=== PATIENT | male | born 1945 | race Caucasian/White ===

== ENCOUNTER 2025-02-14 03:46 | Emergency (ER) | payer BC, MEDICARE ==
--- NOTE | 2025-02-14 05:26 | ED ---
General Adult HPI - General Source: patient, family, RN notes reviewed, old records reviewed Mode of arrival: wheelchair Limitations: no limitations <Miguel Hooper - Last Filed: 02/14/25 06:45> <Martin Hanson - Last Filed: 02/14/25 22:43> - General Chief complaint: Back Pain/Injury Stated complaint: back pain Time Seen by Provider: 02/14/25 04:42 - History of Present Illness Initial comments: 79-year-old male presenting with complaints of lower back pain. Reports he has been dealing with this since , does not recognize a singular inciting event. States the pain is in his lower back and radiates down his left buttock and down the back of his left leg to his foot. Reports he has had an extensive workup for this at an outside facility including x-rays which according to the patient showed no acute fracture or slipped disc. Family reports the patient had an MRI done recently and the results of that should be back in the next day or 2. States they were following with a pain management doctor who gave him a cortisone shot in his back which had no effect whatsoever. Reports the pain management doc had prescribed oxycodone which helped with his pain, but the family reports when they tried to have this pain medication refilled the the pain management doctor refused. States they are unsure why they were not able to get more pain medication. An appointment with Dr. Boykin (orthopedic surgeon) at the end of this week. Patient denies loss of bowel or bladder, denies decreased sensation extremities. (Miguel Hooper) - Related Data Home Medications Medication Instructions Recorded Confirmed Aspirin 81 mg PO DAILY 09/18/14 04/25/16 Omeprazole [PriLOSEC] 20 mg PO DAILY 09/18/14 04/25/16 Valsartan [Diovan] 80 mg PO DAILY 09/18/14 04/25/16 Atorvastatin [Lipitor] 80 mg PO DAILY 04/25/16 04/25/16 Gabapentin [Neurontin] 600 mg PO TID 04/25/16 04/25/16 Irbesartan [Avapro] 150 mg PO DAILY 04/25/16 04/25/16 Allen-3 Fatty Acids [Allen-3] 1,000 mg PO DAILY 04/25/16 04/25/16 Warfarin [Coumadin] 5 mg PO AC-SUPPER 04/25/16 04/25/16 Previous Rx's Medication Instructions Recorded HYDROcodone/APAP 10-325MG [Diana 1 tab PO Q6HR PRN 3 Days #12 tab 02/14/25 10-325] HYDROcodone/APAP 10-325MG [Diana 1 tab PO Q6HR PRN 3 Days #12 tab 02/14/25 10-325] Allergies Allergy/AdvReac Type Severity Reaction Status Date / Time No Known Allergies Allergy Verified 02/14/25 03:53 Review of Systems ROS Other: All systems not noted in ROS Statement are negative. <Miguel Hooper - Last Filed: 02/14/25 06:45> ROS Other: All systems not noted in ROS Statement are negative. <Martin Hanson - Last Filed: 02/14/25 22:43> ROS Statement: Those systems with pertinent positive or pertinent negative responses have been documented in the HPI. Past Medical History Past Medical History: Cancer, CVA/TIA, Deep Vein Thrombosis (DVT), GERD/Reflux, Hyperlipidemia, Hypertension, Prostate Disorder Additional Past Medical History / Comment(s): hx cluster headaches, resstless leg syndrome rt leg, hx ulcer and hiatal hernia, IBS, prostate cancer, hx anemia, arthritis,sciatica/bulging discs(had sx), tia,kidney stones History of Any Multi-Drug Resistant Organisms: None Reported Past Surgical History: Back Surgery, Hernia Repair, Prostate Surgery Additional Past Surgical History / Comment(s): nasal surgery, lap prostatectomy d/t cancer, sully inguinal hernia, rt cataract, , neck fusion 2003,back sx december 2015. Past Anesthesia/Blood Transfusion Reactions: No Reported Reaction Additional Past Anesthesia/Blood Transfusion Reaction / Comment(s): "long time to wake up from aa" Past Psychological History: No Psychological Hx Reported Smoking Status: Never smoker Past Alcohol Use History: Occasional Past Drug Use History: None Reported - Past Family History Mother Family Medical History: Rheumatoid Arthritis (RA) Father Family Medical History: Osteoarthritis (OA) Additional Family Medical History / Comment(s): heart problems not sure exactly what. <Miguel Hooper - Last Filed: 02/14/25 06:45> General Exam Limitations: no limitations <Miguel Hooper - Last Filed: 02/14/25 06:45> - General Exam Comments Initial Comments: GENERAL: In moderate distress at the time of examination. Pleasant and cooperative. HEENT: Head is atraumatic, normocephalic. Pupils are equal, round, and reactive to light. Sclerae anicteric. Conjunctivae are clear. Mucus membranes of the mouth are moist. Neck is supple. RESPIRATORY: Clear to auscultation. No wheezes, rales, or rhonchi. No use of accessory muscles. Patient maintaining oxygen saturation greater than 92%. No chest wall tenderness is noted on palpation or with deep breathing. CARDIOVASCULAR: Regular rate and rhythm. S1 and S2 noted. No systolic or diastolic murmur auscultated. No JVD noted. No S3 or S4 noted. GASTROINTESTINAL: No distention noted. Abdomen soft and round. Normal active bowel sounds auscultated x 4 quadrants. No pain or tenderness noted upon palpation. INTEGUMENTARY: No cyanosis. No jaundice. No rashes noted. No cellulitis noted. EXTREMITIES: 2+ peripheral pulses. No evidence of peripheral edema. No calf tenderness noted. PSYCHIATRIC: Awake, alert, and oriented X 3. Appropriate affect. Intact judgement and insight. (Miguel Hooper) Course Vital Signs 02/14/25 02/14/25 03:50 06:47 Temperature 97.5 F L 97.6 F Pulse Rate 78 72 Respiratory 18 16 Rate Blood Pressure 177/103 144/77 O2 Sat by Pulse 99 99 Oximetry Medical Decision Making <Miguel Hooper - Last Filed: 02/14/25 06:45> <Martin Hanson - Last Filed: 02/14/25 22:43> - Medical Decision Making Was pt. sent in by a medical professional or institution (, [facility], BUTT WELDER, urgent care, hospital, or residential...) When possible be specific @ -No Did you speak to anyone other than the patient for history (EMS, parent, family, police, friend...)? What history was obtained from this source @ -Yes, family Did you review nursing and triage notes (agree or disagree)? Why? @ -I reviewed and agree with nursing and triage notes Were old charts reviewed (outside hosp., previous admission, EMS record, old EKG, old radiological studies, urgent care reports/EKG's, residential records)? Report findings @ -No old charts were reviewed Differential Diagnosis? @ -Differential Back Pain: Strain, zoster, cauda equina syndrome, epidural abscess, vertebral osteomyelitis, discitis, fracture, subluxation, disc herniation, DJD, spinal stenosis, dissection, AAA, pancreatitis, peptic ulcer disease, pyelonephritis, kidney stone, this is not meant to be an all-inclusive list. EKG interpreted by me (3pts min.). @ -As above X-rays interpreted by me (1pt min.). @ -None done CT interpreted by me (1pt min.). @ -None done U/S interpreted by me (1pt. min.). @ -None done What testing was considered but not performed or refused? (CT, X-rays, U/S, labs)? Why? @ -None What meds were considered but not given or refused? Why? @ -None Did you discuss the management of the patient with other professionals (professionals i.e. , PA, BUTT WELDER, lab, RT, psych nurse, manager social responsibility, entertainment lawyer, teacher, major gifts officer, case preparer and liner)? Give summary @ -No Was smoking cessation discussed for >3mins.? @ -No Was critical care preformed (if so, how long)? @ -No Were there social determinants of health that impacted care today? How? (Homelessness, low income, unemployed, alcoholism, drug addiction, transportation, low edu. Level, literacy, decrease access to med. care, prison, rehab)? @ -No Was there de-escalation of care discussed even if they declined (Discuss DNR or withdrawal of care, Hospice)? DNR status @ -No What co-morbidities impacted this encounter? (DM, HTN, Smoking, COPD, CAD, Cancer, CVA, ARF, Chemo, Hep., AIDS, mental health diagnosis, sleep apnea, morbid obesity)? @ -None Was patient admitted / discharged? Hospital course, mention meds given and route, prescriptions, significant lab abnormalities, going to OR and other pertinent info. @ -79-year-old male presenting with complaints of chronic low back pain. As stated above the patient has had extensive evaluation of his back pain including x-rays and MRI and has also followed with a pain management physician. States he is out of pain medications and will not be seeing his orthopedic surgeon until Thursday. Patient was given pain medication here with some improvement in his lower back pain. We discharged with a short course of pain medication upon discharge. Patient is advised to follow-up with his PCP, automobile painter, and orthopedic surgeon. Undiagnosed new problem with uncertain prognosis? @ -No Drug Therapy requiring intensive monitoring for toxicity (Heparin, Nitro, Insulin, Cardizem)? @ -No Were any procedures done? @ -No Diagnosis/symptom? @ -Default Acute, or Chronic, or Acute on Chronic? @ -Chronic Uncomplicated (without systemic symptoms) or Complicated (systemic symptoms)? @ -Default Side effects of treatment? @ -No Exacerbation, Progression, or Severe Exacerbation? @ -No Poses a threat to life or bodily function? How? (Chest pain, USA, MT, pneumonia, PE, COPD, DKA, ARF, appy, cholecystitis, CVA, Diverticulitis, Homicidal, Suicidal, threat to staff... and all critical care pts) @ -No (Miguel Hooper) I personally saw the patient and performed the critical portion of the service. I discussed the patient care with the resident. I directed management, care planning and final disposition of the patient. This includes, but not limited to, review of all lab work, radiological studies, EKG's, consultations, vital signs, and nursing notes. EKG interpreted by me (3pts min.) @ [as above] X-Rays interpreted by me (1 pt min.) @ [none] CT interpreted by me ( 1pt min.) @ [none] U/S interpreted by me (1 pt min.) @ [none] Critical care time of [0] minutes excluding separately billable procedures was spent in conjunction with critical care activities provided by the Resident and Attending simultaneously. I was present during [no procedures] for all critical portions of the procedure and as immediately available to furnish service during the entire procedure. (Martin Hanson) Disposition Is patient prescribed a controlled substance at d/c from ED?: Yes <Miguel Hooper - Last Filed: 02/14/25 06:45> Is patient prescribed a controlled substance at d/c from ED?: Yes <Martin Hanson - Last Filed: 02/14/25 22:43> Clinical Impression: Sciatica Disposition: HOME SELF-CARE Condition: Stable Instructions (If sedation given, give patient instructions): Chronic Back Pain (DC) Prescriptions: HYDROcodone/APAP 10-325MG [Diana 10-325] 1 tab PO Q6HR PRN 3 Days #12 tab PRN Reason: Pain HYDROcodone/APAP 10-325MG [Diana 10-325] 1 tab PO Q6HR PRN 3 Days #12 tab PRN Reason: Pain Referrals: None,Stated [Primary Care Provider] - 1-2 days
[2025-02-14] MEDS: oxyCODONE-APAP 10-325MG 1 EACH TAB PO ONE (05:38)
[2025-02-14 06:57] VITALS: BP 144/77; PULSE 72; RESP 16; TEMP 97.6
== END 2025-02-14 06:47 | disposition home or self-care (01) ==
LOC: EC 03:46
DX: M54.30 Sciatica, unspecified side (principal)
CPT/HCPCS: 99283

== ENCOUNTER → 2025-02-27 | Outpatient (CLI) | payer MEDICARE ==
--- NOTE | 2025-02-27 12:16 | XR ---
EXAMINATION TYPE: XR chest 2V DATE OF EXAM: 02/27/2025 12:07 PM COMPARISON: None TECHNIQUE: XR chest 2V Frontal and lateral views of the chest. CLINICAL INDICATION:Male, 79 years old with history of Z01.818 PRE SURGICAL for lumbar surgery; FINDINGS: Lungs/Pleura: There is no evidence of pleural effusion, focal consolidation, or pneumothorax. Pulmonary vascularity: Unremarkable. Heart/mediastinum: Cardiomediastinal silhouette is unremarkable. Musculoskeletal: No acute osseous pathology. Multilevel degenerative disc disease of the visualized m id to lower thoracic spine. Cervical fusion hardware demonstrated. IMPRESSION: No acute cardiopulmonary disease/process. [facility], , 02/27/2025 12:14 PM
[2025-02-27 13:09] LABS: Partial Thromboplastin Time 22.5 sec (22.0-30.0); Prothrombin Time 11.1 sec (10.0-12.5)
[2025-02-27 15:34] LABS: Basophils # (A) 0.07 X 10*3/uL (0.00-0.10); Basophils % (A) 0.8 %; Eosinophils # (A) 0.22 X 10*3/uL (0.04-0.35); Eosinophils % (A) 2.5 %; HCT 42.1 % (39.6-50.0); HGB 14.1 g/dL (13.0-17.0); Lymphocytes # (A) 1.96 X 10*3/uL (0.90-5.00); Lymphocytes % (A) 22.4 %; MCH 31.6 pg (27.0-32.0); MCHC 33.5 g/dL (32.0-37.0); MCV 94.4 FL (80.0-97.0); Mean Platelet Volume 9.1 FL (9.5-12.2); Monocytes # (A) 0.93 X 10*3/uL (0.20-1.00); Monocytes % (A) 10.6 %; NRBC Per 100 WBC 0 X 10*3/uL (0.00-0.01); Neutrophils # (A) 5.52 X 10*3/uL (1.80-7.70); Platelet Count 164 X 10*3/uL (140-440); RBC 4.46 X 10*6/uL (4.40-5.60); RDW 13.3 % (11.5-14.5); WBC 8.76 X 10*3/uL (4.50-10.00)
[2025-02-27 16:00] LABS: Blood Urea Nitrogen 16.4 mg/dL (9.0-27.0); Carbon Dioxide 25.8 mmol/L (21.6-31.8); Chloride 99 mmol/L (96-109); Glucose 112 mg/dL (70-110); Potassium 4.4 mmol/L (3.5-5.5); Sodium 136 mmol/L (135-145)
[2025-02-27 16:07] LABS: Appearance,Urine Clear (Clear); Bilirubin,Urine Negative (Negative); Blood,Urine Negative (Negative); Color,Urine Yellow (Yellow); Ketones,Urine Negative (Negative); Nitrite,Urine Negative (Negative); PH, Urine 6.5; Specific Gravity,Urine 1.011 (1.001-1.030)
== END | disposition home or self-care (01) ==
LOC: LABPAT 11:49
PROVIDERS: ATTEND Orthopaedic Surgery Orthopaedic Surgery of the Spine
DX: Z01.818 Encounter for other preprocedural examination (principal); Z22.322 Carrier or suspected carrier of Methicillin resistant Staphylococcus aureus; I45.10 Unspecified right bundle-branch block; R00.0 Tachycardia, unspecified; R94.31 Abnormal electrocardiogram [ECG] [EKG]
CPT/HCPCS: 71046; 80048; 81003; 85025; 85610; 85730; 86850; 86900; 86901; 87070; 93005

== ENCOUNTER 2025-03-08 05:46 | Inpatient (IN) | payer MEDICARE ==
[~2025-03-08 05:46] MED LIST: ceFAZolin 1,000 MG in SODIUM CHLORIDE 0.9% IRRIGATIO 1,000 ML IRRIGATION PRN
[2025-03-08] MEDS ORDERED: HYDROmorphone 0.5 MG/0.5 ML SYRINGE IVP PRN ×2 (07:00→13:05)
[2025-03-08 07:08] LABS: Glucose,Whole Blood 105 mg/dL (70-110)
[2025-03-08] MEDS: LACTATED RINGERS 1,000 ML IV SCH (07:12)
[2025-03-08] MEDS: ONDANSETRON 4 MG/2 ML VIAL IVP STA (07:13)
[2025-03-08] MEDS: IV FLUID CONTINUATION 1,000 ML IV ONE ×2 (07:14)
[2025-03-08] MEDS ORDERED: HYDROmorphone (PF) 1 MG/ML ONE (07:27)
[2025-03-08] MEDS ORDERED: MIDAZOLAM 2 MG/2 ML VIAL ONE (07:27)
[2025-03-08] MEDS ORDERED: LIDOCAINE 1% INJ 10MG/ML (20 ML MDV) ONE (07:27)
[2025-03-08] MEDS ORDERED: ROCURONIUM 10 MG/ML (5 ML VIAL) IV ONE (07:27)
[2025-03-08] MEDS ORDERED: fentaNYL (PF) 50 MCG/ML 2 ML AMP ONE (07:27)
[2025-03-08] MEDS ORDERED: GLYCOPYRROLATE 0.2 MG/ML 2 ML VIAL ONE (07:27)
[2025-03-08] MEDS ORDERED: NEOSTIGMINE 1 MG/ML 10 ML VIAL ONE (07:27)
[2025-03-08] MEDS ORDERED: ONDANSETRON 4 MG/2 ML VIAL ONE (07:27)
[2025-03-08] MEDS ORDERED: TRANEXAMIC 1,000 MG/100ML-NACL PREMIX BAG ONE (07:27)
[2025-03-08] MEDS ORDERED: SUCCINYLCHOLINE CHLORIDE 200 MG/10 ML VIAL IV ONE (07:27)
[2025-03-08] MEDS ORDERED: PROPOFOL 10 MG/ML 20 ML VIAL IV ONE (07:27)
[2025-03-08] MEDS ORDERED: LABETALOL 5 MG/ML VIAL MDV ONE (07:27)
[2025-03-08] MEDS ORDERED: ACETAMINOPHEN IV (For NPO) 1,000 MG/100 ML VIAL ONE (07:27)
[2025-03-08] MEDS ORDERED: KETAMINE HCL IN 0.9 % NACL 50 MG/5 ML SYRINGE ONE (07:27)
[2025-03-08] MEDS ORDERED: PHENYLEPHRINE 10 MG/ML VIAL ONE (07:27)
[2025-03-08] MEDS: ceFAZolin 1,000 MG in SODIUM CHLORIDE 0.9% IRRIGATIO 1,000 ML IRRIGATION PRN (08:10)
[2025-03-08] MEDS: THROMBIN (BOVINE) 5,000 UNIT VIAL TOPICAL ONE (08:10)
[2025-03-08] MEDS: LIDOCAINE 1%-EPI 1:100,000 20 ML VIAL SQ ONE (08:10)
[2025-03-08] MEDS: ceFAZolin 1,000 MG in SODIUM CHLORIDE 0.9% 1,000 ML IRRIGATION ONE (09:53)
[2025-03-08] MEDS: SODIUM CHLORIDE 0.9% 1,000 ML IV ONE (10:00)
[2025-03-08] MEDS: LACTATED RINGERS 1,000 ML IV ONE ×2 (12:02→12:23)
--- NOTE | 2025-03-08 12:37 | XR ---
EXAMINATION TYPE: XR lumbar spine 2 or 3V, FL guidance operating room Intraoperative/procedural fluor oscopic services were provided. CLINICAL INDICATION:Male, 79 years old with history of M48.062 SPINAL STENOSIS; , [facility] FINDINGS: Postop images demonstrated in the document section on PACS. Postsurgical changes from L2 through L5 f usion with bilateral pedicular screws and rods and intervertebral disc hardware. No radiographic evid ence for complication. Total fluoroscopy time is 22 seconds. DAP: 4.4308 Gycm2 Please see the operative/procedural note for further details. [facility], , 03/08/2025 12:35 PM
[2025-03-08] MEDS ORDERED: BENZOCAINE/MENTHOL LOZENG 1 EACH LOZENGE MUCOUS MEM PRN (13:05)
[2025-03-08] MEDS ORDERED: ONDANSETRON 4 MG/2 ML VIAL IVP PRN (13:05)
--- NOTE | 2025-03-08 13:16 | P.OP ---
Date of Procedure: 03/08/25 Preoperative Diagnosis: Severe spinal stenosis L2-3 L3-4 L4-5, spondylolisthesis L4-5, history of prior laminectomy decompression L3-4 L4-5, degenerative disc disease facet arthrosis,, lower extremity radiculopathy with weakness, low back pain Postoperative Diagnosis: Same Anesthesia: GETA Pathology: none sent Condition: stable Disposition: PACU Description of Procedure: DESCRIPTION OF PROCEDURE(S): BRIEF OPERATIVE NOTE Preoperative Diagnosis: Severe spinal stenosis L2-3 L3-4 L4-5, spondylolisthesis L4-5, history of prior laminectomy decompression L3-4 L4-5, degenerative disc disease facet arthrosis,, lower extremity radiculopathy with weakness, low back pain Postoperative Diagnosis: Same Procedure: Revision laminectomy decompression L3-4 and L4-5 laminectomy and decompression L2-[address] navigation aided Minimally invasive Posterior lateral decompression and facet fusion L2-3 L3-4 L4-5 Minimally invasive Transforaminal lumbar interbody fusion for a 360 fusion L2-3 L3-4 L4-5 Discectomy for decompression L2-3 L3-4 L4-5 Placement of interbody graft L2-3 L3-4 L4-5 Use of computer navigation for fusion L2-L5 at L4 on the right Local autogenous bone grafting Aspiration of bone marrow from the vertebral body pedicle Use of bone graft extenders Surgeon: Dr. Addison Yard Specialist: Patrice MEAD who is present throughout the entire the case persistence during positioning, dissection, exposure, visualization, and all crucial elements of the case as well as closure. Anesthesia: General anesthesia per Estimated blood loss: Approximately 600 mL, with 200 get back to Cell Saver Complications: None apparent Components implanted: K2M minimally invasive [place] pedicle screw system withscrews measuring 6.5 mm in diameter to rods 3 [place] interbody cage with 10 mL of osteo amp bio4 bone graft substitute and 30 mL of the BX bone fibers to supplement the local autogenous bone graft and bone marrow aspirate Disposition: To recovery room in good stable condition. OPERATIVE INDICATIONS The patient has had severe issues at their lower extremity in her lower back over the past several years with significant worsening over the past several months. Many years ago he had undergone a laminectomy decompression L3-4 L4-5 for lower extremity radiculopathy with stenosis. He had done well with that but over the past few years has been developing worsening. He has developed significant worsening over the past year and particularly in the past several months where he is having great deal of difficulty with any sort of mobilization and ambulation due to the issues at his left lower extremity and across his lower back. He was found to have evidence of severe stenosis at L2-3 with recurrent foraminal stenosis L3-4 and L4-5 with a listhesis at L4-5 as well. These findings correlate well with his low back and lower extremity symptoms. He was having some weakness in his left lower extremity as well. Over the past few months the patient had pain at their back and their lower extremities. The patient is having severe radicular symptoms at their lower extremity with weakness. The patient is having significant pain in their back. They are unable to obtain any comfort. We did aggressive conservative treatment with medications therapy and interventional pain management however thery were not having any relief. The patient also showed evidence of a listhesis with some dynamic instability. He has been through multiple courses of interventional pain management and conservative care. He was not having any benefit despite this. The patient has been through conservative treatment. We discussed various treatment options including surgery, and the patient wishes to proceed with surgery We discussed the risk, patient's alternatives and benefits of surgery including but not limited to, risk of bleeding risk of infection, risk of need for further surgery, risk of decreased, loss of motion, muscle function, malunion nonunion, hardware failure, nerve damage, paralysis, heart attack, blindness and . They understood issues with the current pandemic and the possibility of exposure. OPERATIVE SUMMARY After discussing all the risks, patient alternatives and benefits at length, the patient elected to proceed with surgical intervention, signed informed consent, and presented for their procedure. The patient was seen and examined in the preoperative holding area and the surgical site was marked. The patient was given antibiotics and brought to the operating room. The patient was sedated and intubated by anesthesia in standard fashion. The patient was positioned on to the operating room table in a prone position on the appropriate frame which was well-padded and well molded. We were careful to pad any bony prominences and pressure points. We were careful to maintain the patient's cervical spine and good neutral alignment and position throughout. The patient was prepped and draped in a normal standard fashion. An appropriate timeout and keystone protocol performed. We were able to proceed with the surgery. The local wound area was infiltrated with local anesthetic. Over the right iliac crest I was able to make small stab incisions and establish a guidepin screw fixation to the iliac crest 2. I was able place the computer referencing device over the guidepins to establish an appropriate reference point for the Ziem CT navigation. We then were able to place patient in an appropriate drape and do a navigation spin for visualization and 3-D reconstruction of the lumbar spine. I was able utilize C-arm guidance and navigation to establish appropriate position over the pedicles bilaterally at the appropriate levels from L2-L5. With the appropriate levels confirmed was able to make small incisions over the appropriate pedicle sites bilaterally. Utilizing the computer navigation device I was able to establish bony landmarks at the right iliac crest for a bony reference point for the navigation device. I was able to establish a Jamshidi needle over the lateral aspect of the pedicle and advanced the trocar into the pedicle being careful not to breech superiorly inferiorly medially or laterally using computer navigation device. Position was confirmed regularly with AP and lateral images on C-arm and with the computer navigation device at the appropriate levels bilaterally from L2-L5. I was able to establish the trocar into the pedicle appropriately into the posterior aspect of the vertebral body bilaterally at the appropriate levels. This was done at each of the pedicle positions and each of the vertebrae. At the L4 vertebrae I was able to take approximately 15 mL of bone aspiration from the pedicle of L4 for use later in the case to supplement the allograft and autograft bone. I was able place the guidewire into the trocar and into the vertebral body appropriately under C-arm guidance. Dissection was taken down over the wire to the appropriate starting position for the screw placed. The appropriate length screw was chosen, threaded over the guidewire and screwed appropriately into the pedicle and vertebral body under C-arm guidance in excellent alignment and position with good bony purchase. This is done at each of the screw sites at the appropriate levels bilaterally at L2-L3-L4 and L5. With the screws intact I extended the incision to connect the screw hole sites on the most symptomatic side on the left. I dissected down to establish access over the pars and lamina to the base of the spinous process. I had to do revision decompression at L3-4 and L4-5 this was more tedious due to the prior surgery and the scar tissue at the areas in the changed anatomy. At each of the levels I was able to expose the facet joint. The capsule the facet was taken down and showed some facet arthrosis at the joint. I was able to use a combination of curettes and Kerrison rongeurs and a high-speed drill to take down the facet joint and do a facetectomy. I was able get excellent foraminal decompression and central decompression with undermining across midline to perform a laminectomy centrally and contralaterally. I was able get good central decompression. The ligamentum flavum was taken down to further decompress centrally and at bilateral neural foramen. I was able to expose the disc space and visualize the traversing nerve root. Note was made of some disc protrusion and disc herniation that was abutting the traversing nerve root at the level causing further compression of the nerve root. I was able to establish a annulotomy at the appropriate level protecting soft tissue and neural structures. Note was made of some disc desiccation at the disc. I performed a complete discectomy with accommodation of curettes and rasps and scrapers. I was able get good endplate preparation at the disc space. I sized for the appropriate size interbody spacer protecting the soft tissue and neural structures. The wound was copiously irrigated and suctioned dry. There is no evidence of any dural tear or leak. I was able to pack the disc space with local autogenous bone graft as well as a small amount of bone graft which was also placed into the interbody cage itself. Protecting the soft tissue structures and neural structures I was able place the interbody cage in good alignment and good position with good fit and fill at the interbody space. Position was confirmed with C-arm guidance. This was done at each level first at L4-5 and then at L3-4 and then L2-3 similarly Good hemostasis maintained. There is no evidence of any dural tear or leak. The wound was irrigated and suctioned dry. With the hardware intact, intraoperative C-arm imaging was again taken which showed good alignment and position of the hardware at the appropriate levels from L2-L5. We were then able to measure, contour and place the rods and appropriate hardware bilaterally. I was able to place capcrews, tighten them down, and torque them with the torque screwdriver appropriately. With this intact I was able to place the local autogenous bone graft with additional bone graft enhancer as necessary into the posterior lateral gutters over the decorticated transverse processes and facet joints on the contralateral side. The remainder of the bone graft was placed over the facet joint on the contralateral side after taking down the facet joint capsule. With the bone graft intact, a stable construct, and good decompression at the appropriate levels, we were able to proceed with closure. Good hemostasis was maintained. There is no evidence of dural tear or leak. The fascia was closed for a watertight closure. he subcuticular tissue was closed with absorbable suture. The wound was cleaned and dried and dressed with the appropriate dressing. The drapes were broken down. The patient was gently rolled back onto their hospital bed being careful to maintain their cervical spine and good neutral alignment and position. They were woken up by anesthesia, extubated, and brought to the recovery room in good stable condition. The patient will be admitted to the hospital for appropriate postoperative care, medical management and monitoring. We will continue to follow them closely about the postoperative course.
[2025-03-08 13:48] LABS: Glucose,Whole Blood 138 mg/dL (70-110)
[2025-03-08] MEDS: HYDROmorphone 1 MG/ML 1 ML SYRINGE IVP PRN (17:16)
[2025-03-08] MEDS: GABAPENTIN 300 MG CAP PO SCH (18:06)
[2025-03-08] MEDS: SODIUM CHLORIDE 0.9% 1,000 ML IV SCH (19:42)
[2025-03-08] MEDS: LATANOPROST 0.005% OPHTH DROPS 2.5 ML BTL BOTH EYES SCH (20:53)
[2025-03-08] MEDS: HYDROcodone/APAP 5-325MG 1 EACH TAB PO PRN (20:55)
--- NOTE | 2025-03-08 21:20 | P.CONS ---
History of Present Illness - Reason for Consult Consult date: 03/08/25 Medical management Requesting physician: Estefany Addison - Chief Complaint Back surgery - History of Present Illness Pleasant 79-year-old patient who follows with Dr. Purnima Parrish. Chronic medical conditions include DVT in the remote past, GERD, hypertension, hyperlipidemia, prostate cancer with surgical removal, restless leg syndrome, hiatal hernia, IBS, sciatica kidney stones. Patient been having increasing lower back pain. Pain does go down to the left hip and left leg. With numbness and tingling. Patient is undergone lumbar surgery. By Dr. Addison. Possibly has some pain sitting up in bed. No nausea vomiting Review of systems: GEN.: None EYES: None HEENT: None NECK: None RESPIRATORY: None CARDIOVASCULAR: None GASTROINTESTINAL: None GENITOURINARY: None MUSCULOSKELETAL: Back pain LYMPHATICS: None HEMATOLOGICAL: None PSYCHIATRY: None NEUROLOGICAL: As above Social history: Lives alone. Smoked for about 40 years stopped in 1989. Alcohol occasionally. Physical examination: VITAL SIGNS: 97.6, 86, 17, 118 x 82, 100% on 2 L GENERAL: BMI 29.5 sitting in bed awake not in distress. EYES: Pupils equal. Conjunctiva jerome l. HEENT: External appearance of nose and ears normal, oral cavity grossly normal. NECK: JVD not raised; masses not palpable. HEART: First and second heart sounds are normal; no edema. LUNGS: Respiratory rate normal; clear to auscultation. ABDOMEN: Soft, nontender, liver spleen not palpable, no masses palpable. PSYCH: Alert and oriented x3; mood and affect jerome l. MUSCULOSKELETAL:No Clubbing/cyanosis;muscles-grossly intact. Dressing over incision site NEUROLOGICAL: Cranial nerves grossly intact; no facial asymmetry, power and sensation grossly intact. LYMPHATICS: No lymph nodes palpable in the axilla and neck INVESTIGATIONS, reviewed in the clinical context: February 27, 2025: White count 8.7 hemoglobin 14.1 platelets 164 sodium 136 potassium 4.4 creatinine 1.0 Assessment plan: - Severe spinal stenosis L2-L3, L3-L4, L4-L5, spondylolisthesis L4-L5, history of prior laminectomy decompression L3-L4, L4-L5, DJD facet arthrosis, lower extremity radiculopathy with weakness especially on the left side low back pain. Patient underwent surgical intervention including laminectomy decompression discectomy interbody graft etc. Estimated blood loss approximately 600 cc with 200 get back to [facility] - Essential hypertension Diovan. Avapro - Restless leg syndrome Neurontin - Follow H&H. EBL was 600 with 200 and [facility] Labs in the morning - Hyperlipidemia Lipitor - GERD Omeprazole - Irritable bowel syndrome - Full code Care was discussed with patient. Questions answered. Activity per surgery. Thank Dr. Addison Past Medical History Past Medical History: Coronary Artery Disease (CAD), Cancer, CVA/TIA, Deep Vein Thrombosis (DVT), GERD/Reflux, Hyperlipidemia, Hypertension, Prostate Disorder Additional Past Medical History / Comment(s): hx cluster headaches, restless leg syndrome rt leg, hx ulcer and hiatal hernia, IBS, prostate cancer, hx anemia, arthritis,sciatica/bulging discs(had sx), tia,kidney stones. pt states he does not remember having a DVT or TIA History of Any Multi-Drug Resistant Organisms: None Reported Past Surgical History: Back Surgery, Hernia Repair, Prostate Surgery Additional Past Surgical History / Comment(s): nasal surgery, lap prostatectomy d/t cancer, sully inguinal hernia, rt cataract, , neck fusion 2003,back sx december 2015. hiatal hernia, rt rotator cuff repair Past Anesthesia/Blood Transfusion Reactions: No Reported Reaction Additional Past Anesthesia/Blood Transfusion Reaction / Comm: "long time to wake up from aa" Past Psychological History: No Psychological Hx Reported Smoking Status: Former smoker Past Alcohol Use History: Occasional Additional Past Alcohol Use History / Comment(s): started [id number] Past Drug Use History: None Reported - Past Family History Mother Family Medical History: Rheumatoid Arthritis (RA) Father Family Medical History: Osteoarthritis (OA) Additional Family Medical History / Comment(s): heart problems not sure exactly what. Medications and Allergies Home Medications Medication Instructions Recorded Confirmed Type Aspirin 81 mg PO DAILY 09/18/14 03/08/25 History Omeprazole [PriLOSEC] 20 mg PO DAILY 09/18/14 03/08/25 History Valsartan [Diovan] 80 mg PO DAILY 09/18/14 03/08/25 History Atorvastatin [Lipitor] 80 mg PO DAILY 04/25/16 03/08/25 History Gabapentin [Neurontin] 600 mg PO TID 04/25/16 03/08/25 History Irbesartan [Avapro] 150 mg PO DAILY 04/25/16 03/08/25 History [place]-3 Fatty Acids [[place]-3] 1,000 mg PO DAILY 04/25/16 03/08/25 History HYDROcodone/APAP 5-325MG [Corder 1 tab PO DIRECTED PRN 03/06/25 03/08/25 History 5-325] Latanoprost [Latanoprost 0.005%] 1 drop BOTH EYES HS 03/06/25 03/08/25 History Unk Vitamin C 1 tab PO DAILY 03/06/25 03/08/25 History Unk Vitamin D 1 tab PO DAILY 03/06/25 03/08/25 History Allergies Allergy/AdvReac Type Severity Reaction Status Date / Time No Known Allergies Allergy Verified 03/08/25 06:21 Physical Exam Vitals: Vital Signs Temp Pulse Pulse Pulse Resp BP BP 03/08/25 15:24 97.6 F 86 17 118/82 03/08/25 14:45 88 12 97/67 03/08/25 14:30 90 12 95/71 03/08/25 14:15 86 12 89/64 03/08/25 14:00 88 12 99/60 03/08/25 13:47 92 16 99/76 03/08/25 13:32 93 16 116/61 03/08/25 13:17 90 14 99/71 03/08/25 13:02 87 16 93/70 03/08/25 12:47 96.8 F L 90 13 104/73 03/08/25 06:30 97.0 F L 89 18 141/98 Pulse Ox 03/08/25 15:24 03/08/25 14:45 100 03/08/25 14:30 100 03/08/25 14:15 100 03/08/25 14:00 100 03/08/25 13:47 98 03/08/25 13:32 100 03/08/25 13:17 100 03/08/25 13:02 100 03/08/25 12:47 100 03/08/25 06:30 99 Intake and Output 03/08/25 03/08/25 03/08/25 06:59 14:59 22:59 Intake Total 3852 Output Total 1200 Balance 2652 Intake: IV 3852 Output: Urine 600 Estimated Blood Loss 600 Other: Weight 83 kg 83 kg Results Labs: Abnormal Lab Results - Last 24 Hours (Table) 03/08/25 Range/Units 13:46 POC Glucose (mg/dL) 138 H (70-110) mg/dL
[2025-03-09 08:16] LABS: Basophils # (A) 0.06 X 10*3/uL (0.00-0.10); Basophils % (A) 0.6 %; Eosinophils # (A) 0.03 X 10*3/uL (0.04-0.35); Eosinophils % (A) 0.3 %; HCT 41.4 % (39.6-50.0); HGB 13.5 g/dL (13.0-17.0); Immature Grans, Automated 1.90 %; Lymphocytes # (A) 1.05 X 10*3/uL (0.90-5.00); Lymphocytes % (A) 9.8 %; MCH 31.5 pg (27.0-32.0); MCHC 32.6 g/dL (32.0-37.0); MCV 96.5 FL (80.0-97.0); Monocytes # (A) 1.25 X 10*3/uL (0.20-1.00); Monocytes % (A) 11.7 %; NRBC Per 100 WBC 0 X 10*3/uL (0.00-0.01); Neutrophils # (A) 8.10 X 10*3/uL (1.80-7.70); Neutrophils % (A) 75.7 %; Platelet Count 154 X 10*3/uL (140-440); RBC 4.29 X 10*6/uL (4.40-5.60); RDW 14.2 % (11.5-14.5); WBC 10.69 X 10*3/uL (4.50-10.00)
[2025-03-09 08:30] LABS: Anion Gap 14.30 mmol/L (4.00-12.00); BUN/Creat Ratio 14.20 Ratio (12.00-20.00); Blood Urea Nitrogen 14.2 mg/dL (9.0-27.0); Calcium 8.2 mg/dL (8.7-10.3); Carbon Dioxide 21.7 mmol/L (21.6-31.8); Chloride 102 mmol/L (96-109); Glucose 139 mg/dL (70-110); Potassium 4.4 mmol/L (3.5-5.5); Sodium 138 mmol/L (135-145)
[2025-03-09] MEDS ORDERED: VALSARTAN 80 MG PO SCH (09:00)
[2025-03-09] MEDS: ASPIRIN 81 MG PO SCH (09:02)
[2025-03-09] MEDS: ATORVASTATIN 80 MG TAB PO SCH (09:02)
[2025-03-09] MEDS: SENNOSIDES-DOCUSATE SODIUM 1 EACH TAB PO SCH (09:05)
[2025-03-09] MEDS: LOSARTAN 50 MG TAB PO SCH (09:05)
[2025-03-09] MEDS: PANTOPRAZOLE 40 MG TABLET PO SCH (09:05)
--- NOTE | 2025-03-09 09:49 | P.PN ---
Progress Note - Text Progress Note Date: 03/09/25 Orthopedic Spine History of present illness: Patient is a pleasant 79-year-old male who is seen and examined at the bedside following posterior lateral decompression and fusion performed yesterday. Patient has had some difficulty postoperatively. He was significantly confused last night. His confusion has improved this morning. He is having pain and stiffness at his lumbar spine. He is not currently complaining of lower extremity weakness or radiculopathy. He has not yet been out of bed this morning. His pain is currently being controlled with medications. Patient would like to try to work with therapy over the next couple days to increase his mobility and ambulation. He is hoping to be discharged home when cleared. Patient is being seen by medicine for his other medical diagnoses including essential hypertension, hyperlipidemia, restless leg syndrome, and IBS. Patient also has a history of coronary artery disease, DVT, and prostate disorder. He does admit to some abdominal discomfort this morning. He is passing gas. His Johnson catheter was just discontinued this morning. He has not yet voided independently. Physical Exam Lumbar Fusion: Status post surgical day number 1 Patient is awake, alert, and oriented 3; patient is answering questions appropriately at the bedside. Vital signs stable Good chest excursion with deep inspiration and expiration Abdomen soft Dorsiflexion, plantarflexion, and extensor hallucis longus positive sustained bilaterally No signs or symptoms of DVT; no calf pain; pneumatic cuffs intact bilateral lower extremities Optifoam dressings are clean, dry, and intact over the lumbar spine and right iliac crest; no erythema, purulence, or signs of infection Neurovascularly intact bilaterally lower extremities Assessment: Status post L2-3, L3-4, and L4-5 minimally invasive posterior lateral decompression and fusion with transforaminal lumbar interbody fusion Low back pain L4-5 spondylolisthesis L2-3, L3-4, and L4-5 severe spinal stenosis L3-4 and L4-5 history of laminectomy Lumbar degenerative disc disease Lumbar facet arthrosis Lower extremity radiculopathy with weakness Essential hypertension Hyperlipidemia Restless leg syndrome IBS History coronary artery disease History of DVT History of prostate disorder Plan: 1. Ambulate as tolerated; work with Physical Therapy to increase mobilization 2. Continue pain control with IV and oral medications; will plan to begin weaning the patient off of IV narcotic medication in anticipation for discharge home in the next 1-2 days 3. Dressings to remain intact with Optifoam; patient may shower with dressings intact 4. Medical management can continue to manage patient for his other medical diagnoses 5. We will continue to follow the patient closely; patient will most likely remain in the hospital over the next 2 to 3 days depending on his progress postoperatively with plans to be discharged home once his symptoms improve and his pain is controlled with oral medications. 6. Patient can follow-up with Patrice Hampton PA-C or Dr. Sunday Addison at [facility] in 2-3 weeks following discharge
[2025-03-09] MEDS: CYCLOBENZAPRINE 10 MG TAB PO PRN (11:24)
--- NOTE | 2025-03-09 17:37 | P.PN ---
Progress Note - Text Progress Note Date: 03/09/25 - Chief Complaint Back surgery - History of Present Illness Pleasant 79-year-old patient who follows with Dr. Purnima Parrish. Chronic medical conditions include DVT in the remote past, GERD, hypertension, hyperlipidemia, prostate cancer with surgical removal, restless leg syndrome, hiatal hernia, IBS, sciatica kidney stones. Patient been having increasing lower back pain. Pain does go down to the left hip and left leg. With numbness and tingling. Patient is undergone lumbar surgery. By Dr. Addison. Possibly has some pain sitting up in bed. No nausea vomiting March 09: Sitting up in bed. Daughter at the bedside. Eating fair. Johnson was removed. Has not made urine when I saw the patient earlier today. Seen by physical therapy. Was a moderate assist 3 feet to the chair. With a rolling walker. Looking to go to rehab. Active Medications Hydrocodone Bitart/Acetaminophen (Hydrocodone/Apap 5-325mg 1 Each Tab) 1 each PO Q4HR PRN PRN Reason: Pain 1-3 Stop: 04/07/25 13:04 Last Admin: 03/09/25 09:02 Dose: 1 each Aspirin (Aspirin 81 Mg) 81 mg PO DAILY CIARA Stop: 04/08/25 08:59 Last Admin: 03/09/25 09:02 Dose: 81 mg Atorvastatin Calcium (Atorvastatin 80 Mg Tab) 80 mg PO DAILY CIARA Stop: 04/08/25 08:59 Last Admin: 03/09/25 09:02 Dose: 80 mg Benzocaine/Menthol (Benzocaine/Menthol Lozeng 1 Each Lozenge) 1 each MUCOUS MEM Q4HR PRN PRN Reason: Sore Throat Stop: 04/07/25 13:04 Cyclobenzaprine HCl (Cyclobenzaprine 10 Mg Tab) 10 mg PO TID PRN PRN Reason: Muscle Spasm Stop: 04/07/25 13:04 Last Admin: 03/09/25 11:24 Dose: 10 mg Gabapentin (Gabapentin 300 Mg Cap) 600 mg PO TID CIARA Stop: 04/07/25 15:59 Last Admin: 03/09/25 16:22 Dose: 600 mg Hydromorphone HCl (Hydromorphone 0.5 Mg/0.5 Ml Syringe) 0.5 mg IVP Q4HR PRN PRN Reason: Pain 4-6 Stop: 04/07/25 13:04 Hydromorphone HCl (Hydromorphone 1 Mg/Ml 1 Ml Syringe) 1 mg IVP Q4HR PRN PRN Reason: Pain 7-10 Stop: 04/07/25 13:04 Last Admin: 03/09/25 05:13 Dose: 1 mg Lactated Ringer's (Lactated Ringers) 1,000 mls @ 20 mls/hr IV .Q24H CIARA Stop: 04/07/25 06:12 Last Admin: 03/08/25 07:13 Dose: 20 mls/hr Sodium Chloride (Saline 0.9%) 1,000 mls @ 75 mls/hr IV .[id number] [facility] Stop: 04/07/25 13:14 Last Admin: 03/09/25 02:29 Dose: 75 mls/hr Latanoprost (Latanoprost 0.005% Ophth Drops 2.5 Ml Btl) 1 drops BOTH EYES HS [facility] Stop: 04/07/25 20:59 Last Admin: 03/08/25 20:53 Dose: 1 drops Losartan Potassium (Losartan 50 Mg Tab) 50 mg PO DAILY CIARA Stop: 04/08/25 08:59 Last Admin: 03/09/25 09:05 Dose: 50 mg Magnesium Hydroxide (Magnesium Hydroxide 2,400 Mg/30 Ml Cup) 2,400 mg PO DAILY PRN PRN Reason: Constipation Stop: 04/07/25 13:04 Ondansetron HCl (Ondansetron 4 Mg/2 Ml Vial) 4 mg IVP Q8HR PRN PRN Reason: Nausea And Vomiting Stop: 04/07/25 13:04 Pantoprazole Sodium (Pantoprazole 40 Mg Tablet) 40 mg PO DAILY CIARA Stop: 04/08/25 08:59 Last Admin: 03/09/25 09:05 Dose: 40 mg Senna/Docusate Sodium (Sennosides-Docusate Sodium 1 Each Tab) 1 each PO DAILY [facility]ARA Stop: 04/08/25 08:59 Last Admin: 03/09/25 09:05 Dose: 1 each Senna/Docusate Sodium (Sennosides-Docusate Sodium 1 Each Tab) 2 each PO DAILY PRN PRN Reason: Constipation Stop: 04/07/25 13:04 Social history: Lives alone. Smoked for about 40 years stopped in 1989. Alcohol occasionally. Physical examination: VITAL SIGNS: 99, 98, 16, 130 x 80, 95% room air GENERAL: BMI 29.5 reclining in bed EYES: Pupils equal. Conjunctiva jerome l. HEENT: External appearance of nose and ears normal, oral cavity grossly normal. NECK: JVD not raised; masses not palpable. HEART: First and second heart sounds are normal; no edema. LUNGS: Respiratory rate normal; clear to auscultation. ABDOMEN: Soft, nontender, liver spleen not palpable, no masses palpable. PSYCH: Alert and oriented x3; mood and affect jerome l. MUSCULOSKELETAL:No Clubbing/cyanosis;muscles-grossly intact. Dressing over incision site NEUROLOGICAL: Cranial nerves grossly intact; no facial asymmetry, power and sensation grossly intact. INVESTIGATIONS, reviewed in the clinical context: March 09: White count 10.6 hemoglobin 13.5 platelets 154 potassium 4.4 creatinine 1.0 February 27, 2025: White count 8.7 hemoglobin 14.1 platelets 164 sodium 136 potassium 4.4 creatinine 1.0 Assessment plan: - Severe spinal stenosis L2-L3, L3-L4, L4-L5, spondylolisthesis L4-L5, history of prior laminectomy decompression L3-L4, L4-L5, DJD facet arthrosis, lower extremity radiculopathy with weakness especially on the left side low back pain. Patient underwent surgical intervention including laminectomy decompression discectomy interbody graft etc. Estimated blood loss approximately 600 cc with 200 get back to [facility] Pain control - Essential hypertension Diovan. Avapro - Restless leg syndrome Neurontin - Acute gait dysfunction following surgery. PT OT on the case. - Follow H&H. EBL was 600 with 200 and [facility] in the morning - Hyperlipidemia Lipitor - GERD Omeprazole - Irritable bowel syndrome - Full code Discussed with patient daughter. Activity per PT OT. Thank Dr. Addison Past Medical History Past Medical History: Coronary Artery Disease (CAD), Cancer, CVA/TIA, Deep Vein Thrombosis (DVT), GERD/Reflux, Hyperlipidemia, Hypertension, Prostate Disorder Additional Past Medical History / Comment(s): hx cluster headaches, restless leg syndrome rt leg, hx ulcer and hiatal hernia, IBS, prostate cancer, hx anemia, arthritis,sciatica/bulging discs(had sx), tia,kidney stones. pt states he does not remember having a DVT or TIA History of Any Multi-Drug Resistant Organisms: None Reported Past Surgical History: Back Surgery, Hernia Repair, Prostate Surgery Additional Past Surgical History / Comment(s): nasal surgery, lap prostatectomy d/t cancer, sully inguinal hernia, rt cataract, , neck fusion 2003,back sx december 2015. hiatal hernia, rt rotator cuff repair Past Anesthesia/Blood Transfusion Reactions: No Reported Reaction Additional Past Anesthesia/Blood Transfusion Reaction / Comm: "long time to wake up from aa" Past Psychological History: No Psychological Hx Reported Smoking Status: Former smoker Past Alcohol Use History: Occasional Additional Past Alcohol Use History / Comment(s): started [id number] quit [id number] Past Drug Use History: None Reported
--- NOTE | 2025-03-10 09:06 | P.PN ---
Progress Note - Text Progress Note Date: 03/10/25 Orthopedic Spine History of present illness: Patient is a pleasant 79-year-old male who is seen and examined at the bedside following posterior lateral decompression and fusion performed Thursday. He has had improvement as compared to yesterday. His back pain is better controlled. It does continue to be present. His pain is currently being controlled with oral medications. He is currently sitting in a bedside chair. He has been able to transfer with physical therapy. He does state he is unable to mobilize independently. He is currently planning for discharge to [facility] once authorization has been obtained. Case management is currently working on this authorization. He is eating and voiding without difficulty. He is not currently complaining of lower extremity weakness or radiculopathy. Patient is being seen by medicine for his other medical diagnoses including essential hypertension, hyperlipidemia, restless leg syndrome, and IBS. Patient also has a history of coronary artery disease, DVT, and prostate disorder. Physical Exam Lumbar Fusion: Status post surgical day number 2 Patient is awake, alert, and oriented 3; patient is answering questions appropriately at the bedside. Vital signs stable Good chest excursion with deep inspiration and expiration Abdomen soft Dorsiflexion, plantarflexion, and extensor hallucis longus positive sustained bilaterally No signs or symptoms of DVT; no calf pain; pneumatic cuffs intact bilateral lower extremities Optifoam dressings are dry and intact over the lumbar spine and right iliac crest with 1 small spot of dried blood or over the inferior aspect of the left lower lumbar incision site no erythema, purulence, or signs of infection Neurovascularly intact bilaterally lower extremities Assessment: Status post L2-3, L3-4, and L4-5 minimally invasive posterior lateral decompression and fusion with transforaminal lumbar interbody fusion Low back pain L4-5 spondylolisthesis L2-3, L3-4, and L4-5 severe spinal stenosis L3-4 and L4-5 history of laminectomy Lumbar degenerative disc disease Lumbar facet arthrosis Lower extremity radiculopathy with weakness Essential hypertension Hyperlipidemia Restless leg syndrome IBS History coronary artery disease History of DVT History of prostate disorder Plan: 1. Ambulate as tolerated; work with Physical Therapy to increase mobilization 2. Continue pain control with IV and oral medications; will plan to begin weaning the patient off of IV narcotic medication in anticipation for discharge [facility] in the next 1-2 days An "Opiod Start Talking" Form has been signed and placed in the patient's chart. A prescription has been written for hydrocodone 5 mg / 325 mg, 1 tab, every 6 hours, as needed for acute pain, dispense #28. Prescription is written, signed, and placed in the patient's chart for discharge to rehabilitation facility. Prescriptions also added for baclofen 10 mg, 1 tab, 3 times daily, as needed for muscle spasm and Senokot-S, 1 tab, twice daily, as needed for constipation. 3. Dressings to remain intact with Optifoam; patient may shower with dressings intact 4. Medical management can continue to manage patient for his other medical diagnoses 5. We will continue to follow the patient closely; patient is currently planning for discharge for [facility] rehabilitation facility. This could happen as early as tomorrow, 03/11/2025 if approved by his insurance. If not, he will most likely remain in the hospital until this coming 03/13/2025 with plans to discharge to [facility] rehabilitation facility at that time. 6. Patient can follow-up with Patrice Hampton PA-C or Dr. Sunday Addison at [facility] in 2-3 weeks following discharge
[2025-03-10] MEDS: SENNOSIDES-DOCUSATE SODIUM 1 EACH TAB PO PRN (13:36)
--- NOTE | 2025-03-10 17:49 | P.PN ---
Progress Note - Text Progress Note Date: 03/10/25 - Chief Complaint Back surgery - History of Present Illness Pleasant 79-year-old patient who follows with Dr. Purnima Parrish. Chronic medical conditions include DVT in the remote past, GERD, hypertension, hyperlipidemia, prostate cancer with surgical removal, restless leg syndrome, hiatal hernia, IBS, sciatica kidney stones. Patient been having increasing lower back pain. Pain does go down to the left hip and left leg. With numbness and tingling. Patient is undergone lumbar surgery. By Dr. Addison. Possibly has some pain sitting up in bed. No nausea vomiting March 09: Sitting up in bed. Daughter at the bedside. Eating fair. Johnson was removed. Has not made urine when I saw the patient earlier today. Seen by physical therapy. Was a moderate assist 3 feet to the chair. With a rolling walker. Looking to go to rehab. March 10: Eating well. Possible discharge to ECF tomorrow. A bit lethargic likely from pain medications. Will DC Dilaudid Active Medications Hydrocodone Bitart/Acetaminophen (Hydrocodone/Apap 5-325mg 1 Each Tab) 1 each PO Q4HR PRN PRN Reason: Pain 1-3 Stop: 04/07/25 13:04 Last Admin: 03/10/25 17:02 Dose: 1 each Aspirin (Aspirin 81 Mg) 81 mg PO DAILY [facility] Stop: 04/08/25 08:59 Last Admin: 03/10/25 09:36 Dose: 81 mg Atorvastatin Calcium (Atorvastatin 80 Mg Tab) 80 mg PO DAILY [facility] Stop: 04/08/25 08:59 Last Admin: 03/10/25 09:36 Dose: 80 mg Benzocaine/Menthol (Benzocaine/Menthol Lozeng 1 Each Lozenge) 1 each MUCOUS MEM Q4HR PRN PRN Reason: Sore Throat Stop: 04/07/25 13:04 Cyclobenzaprine HCl (Cyclobenzaprine 10 Mg Tab) 10 mg PO TID PRN PRN Reason: Muscle Spasm Stop: 04/07/25 13:04 Last Admin: 03/09/25 11:24 Dose: 10 mg Gabapentin (Gabapentin 300 Mg Cap) 600 mg PO TID [facility] Stop: 04/07/25 15:59 Last Admin: 03/10/25 15:49 Dose: 600 mg Hydromorphone HCl (Hydromorphone 0.5 Mg/0.5 Ml Syringe) 0.5 mg IVP Q4HR PRN PRN Reason: Pain 4-6 Stop: 04/07/25 13:04 Hydromorphone HCl (Hydromorphone 1 Mg/Ml 1 Ml Syringe) 1 mg IVP Q4HR PRN PRN Reason: Pain 7-10 Stop: 04/07/25 13:04 Last Admin: 03/09/25 05:13 Dose: 1 mg Lactated Ringer's (Lactated Ringers) 1,000 mls @ 20 mls/hr IV .Q24H [facility] Stop: 04/07/25 06:12 Last Admin: 03/10/25 06:51 Dose: Not Given Sodium Chloride (Saline 0.9%) 1,000 mls @ 75 mls/hr IV .[id number] [facility] Stop: 04/07/25 13:14 Last Admin: 03/10/25 06:51 Dose: Not Given Latanoprost (Latanoprost 0.005% Ophth Drops 2.5 Ml Btl) 1 drops BOTH EYES HS [facility] Stop: 04/07/25 20:59 Last Admin: 03/09/25 20:40 Dose: 1 drops Losartan Potassium (Losartan 50 Mg Tab) 50 mg PO DAILY [facility] Stop: 04/08/25 08:59 Last Admin: 03/10/25 09:37 Dose: 50 mg Magnesium Hydroxide (Magnesium Hydroxide 2,400 Mg/30 Ml Cup) 2,400 mg PO DAILY PRN PRN Reason: Constipation Stop: 04/07/25 13:04 Ondansetron HCl (Ondansetron 4 Mg/2 Ml Vial) 4 mg IVP Q8HR PRN PRN Reason: Nausea And Vomiting Stop: 04/07/25 13:04 Pantoprazole Sodium (Pantoprazole 40 Mg Tablet) 40 mg PO DAILY [facility] Stop: 04/08/25 08:59 Last Admin: 03/10/25 09:37 Dose: 40 mg Senna/Docusate Sodium (Sennosides-Docusate Sodium 1 Each Tab) 1 each PO DAILY [facility] Stop: 04/08/25 08:59 Last Admin: 03/10/25 09:37 Dose: 1 each Senna/Docusate Sodium (Sennosides-Docusate Sodium 1 Each Tab) 2 each PO DAILY PRN PRN Reason: Constipation Stop: 04/07/25 13:04 Last Admin: 03/10/25 13:36 Dose: 2 each Social history: Lives alone. Smoked for about 40 years stopped in 1989. Alcohol occasionally. Physical examination: VITAL SIGNS: 98.7, 109, 17, 109 x 64, 99% room air GENERAL: BMI 29.5 reclining in chair but sleepy EYES: Pupils equal. Conjunctiva jerome l. HEENT: External appearance of nose and ears normal, oral cavity grossly normal. NECK: JVD not raised; masses not palpable. HEART: First and second heart sounds are normal; no edema. LUNGS: Respiratory rate normal; clear to auscultation. ABDOMEN: Soft, nontender, liver spleen not palpable, no masses palpable. PSYCH: Sleepy MUSCULOSKELETAL:No Clubbing/cyanosis;muscles-grossly intact. Dressing over incision site NEUROLOGICAL: Cranial nerves grossly intact; no facial asymmetry, power and sensation grossly intact. INVESTIGATIONS, reviewed in the clinical context: March 09: White count 10.6 hemoglobin 13.5 platelets 154 potassium 4.4 creatinine 1.0 February 27, 2025: White count 8.7 hemoglobin 14.1 platelets 164 sodium 136 potassium 4.4 creatinine 1.0 Assessment plan: - Severe spinal stenosis L2-L3, L3-L4, L4-L5, spondylolisthesis L4-L5, history of prior laminectomy decompression L3-L4, L4-L5, DJD facet arthrosis, lower extremity radiculopathy with weakness especially on the left side low back pain. Patient underwent surgical intervention including laminectomy decompression discectomy interbody graft etc. Estimated blood loss approximately 600 cc with 200 get back to [facility] Pain control - Essential hypertension Diovan. Avapro - Restless leg syndrome Neurontin - Acute gait dysfunction following surgery. PT OT on the case. - Follow H&H. EBL was 600 with 200 and [facility] Labs in the morning - Hyperlipidemia Lipitor - GERD Omeprazole - Irritable bowel syndrome - Full code Patient is sleepy. Lethargic. RADHA Eduardo Thank Dr. Addison Past Medical History Past Medical History: Coronary Artery Disease (CAD), Cancer, CVA/TIA, Deep Vein Thrombosis (DVT), GERD/Reflux, Hyperlipidemia, Hypertension, Prostate Disorder Additional Past Medical History / Comment(s): hx cluster headaches, restless leg syndrome rt leg, hx ulcer and hiatal hernia, IBS, prostate cancer, hx anemia, arthritis,sciatica/bulging discs(had sx), tia,kidney stones. pt states he does not remember having a DVT or TIA History of Any Multi-Drug Resistant Organisms: None Reported Past Surgical History: Back Surgery, Hernia Repair, Prostate Surgery Additional Past Surgical History / Comment(s): nasal surgery, lap prostatectomy d/t cancer, sully inguinal hernia, rt cataract, , neck fusion 2003,back sx december 2015. hiatal hernia, rt rotator cuff repair Past Anesthesia/Blood Transfusion Reactions: No Reported Reaction Additional Past Anesthesia/Blood Transfusion Reaction / Comm: "long time to wake up from aa" Past Psychological History: No Psychological Hx Reported Smoking Status: Former smoker Past Alcohol Use History: Occasional Additional Past Alcohol Use History / Comment(s): started [id number] quit [id number] Past Drug Use History: None Reported
[2025-03-11 08:16] VITALS: BP 159/92; PULSE 110; RESP 20; TEMP 98.2
[2025-03-11] MEDS: MAGNESIUM HYDROXIDE 2,400 MG/30 ML CUP PO PRN (08:18)
--- NOTE | 2025-03-11 09:35 | P.DS ---
Providers Date of admission: 03/08/25 05:47 Attending physician: Estefany Addison Consults: 03/08/25 13:05 Consult Physician Routine Consulting Provider: Tomás Edwards Consult Reason/Comments: medical management Do you want consulting provider notified?: Yes Primary care physician: Purnima Parrish MD Hospital Course: Patient is a pleasant 79-year-old male who is 03/08/2025 Status post L2-3, L3-4, and L4-5 minimally invasive posterior lateral decompression and fusion with transforaminal lumbar interbody fusion by Dr. Addison. He tolerated the procedure well and has been on the orthopedic floor with internal medicine for medical management. He is seen and examined at the bedside today. Patient has had some difficulty postoperatively. He had some confusion that has continued to improve. He is having pain and stiffness at his lumbar spine. He is not currently complaining of lower extremity weakness or radiculopathy. He has not yet been out of bed this morning. His pain is currently being controlled with medications. Patient would like to try to work with therapy over the next couple days to increase his mobility and ambulation. He is hoping to be discharged home when cleared. Patient is being seen by medicine for his other medical diagnoses including essential hypertension, hyperlipidemia, restless leg syndrome, and IBS. Patient also has a history of coronary artery disease, DVT, and prostate disorder. His Johnson catheter was just discontinued but replaced due to urinary retention. Physical Exam Lumbar Fusion: Patient is awake, alert, and oriented 3; patient is answering questions appropriately at the bedside. Vital signs stable Good chest excursion with deep inspiration and expiration Abdomen soft Dorsiflexion, plantarflexion, and extensor hallucis longus positive sustained bilaterally No signs or symptoms of DVT; no calf pain; pneumatic cuffs intact bilateral lower extremities Optifoam dressings are have some strikethrough, discussed with nursing team to replace. Neurovascularly intact bilaterally lower extremities Assessment: 03/08/2025 Status post L2-3, L3-4, and L4-5 minimally invasive posterior lateral decompression and fusion with transforaminal lumbar interbody fusion Low back pain L4-5 spondylolisthesis L2-3, L3-4, and L4-5 severe spinal stenosis L3-4 and L4-5 history of laminectomy Lumbar degenerative disc disease Lumbar facet arthrosis Lower extremity radiculopathy with weakness Essential hypertension Hyperlipidemia Restless leg syndrome IBS History coronary artery disease History of DVT History of prostate disorder Plan: 1. Ambulate as tolerated; worked with Physical Therapy and will be transferred to rehab. 2. An oral pain medication script was placed in the patient's chart on 03/10/2025. His pain has been controlled with oral pain medication. 3. Dressings to be replaced before discharge. The patient may shower with dressings intact. Disposition: Patient is cleared from an orthopedic standpoint to transfer to rehab when cleared by medical team. We appreciate internal medicine for medical management. Patient has a urinary catheter in place. Patient can follow-up with Patrice Hampton PA-C or Dr. Sunday Addison at [facility] in 2-3 weeks following discharge Assessment: 03/08/2025 Status post L2-3, L3-4, and L4-5 minimally invasive posterior lateral decompression and fusion with transforaminal lumbar interbody fusion Low back pain L4-5 spondylolisthesis L2-3, L3-4, and L4-5 severe spinal stenosis L3-4 and L4-5 history of laminectomy Lumbar degenerative disc disease Lumbar facet arthrosis Lower extremity radiculopathy with weakness Essential hypertension Hyperlipidemia Restless leg syndrome IBS History coronary artery disease History of DVT History of prostate disorder Plan - Discharge Summary Discharge Rx Participant: Yes New Discharge Prescriptions: New Baclofen 10 mg PO TID PRN #60 tab PRN Reason: Spasms HYDROcodone/APAP 5-325MG [Union 5] 1 each PO Q6HR PRN #28 tab PRN Reason: Pain Sennosides-Docusate Sodium [Senokot-S] 1 tab PO BID PRN #60 tablet PRN Reason: Constipation No Action Omeprazole [PriLOSEC] 20 mg PO DAILY Aspirin 81 mg PO DAILY Valsartan [Diovan] 80 mg PO DAILY Irbesartan [Avapro] 150 mg PO DAILY Gabapentin [Neurontin] 600 mg PO TID Atorvastatin [Lipitor] 80 mg PO DAILY Lithonia-3 Fatty Acids [Lithonia-3] 1,000 mg PO DAILY HYDROcodone/APAP 5-325MG [Union 5-325] 1 tab PO DIRECTED PRN PRN Reason: Pain Unk Vitamin C 1 tab PO DAILY Latanoprost [Latanoprost 0.005%] 1 drop BOTH EYES HS Unk Vitamin D 1 tab PO DAILY Discharge Medication List Aspirin 81 mg PO DAILY 09/18/14 [History] Omeprazole [PriLOSEC] 20 mg PO DAILY 09/18/14 [History] Valsartan [Diovan] 80 mg PO DAILY 09/18/14 [History] Atorvastatin [Lipitor] 80 mg PO DAILY 04/25/16 [History] Gabapentin [Neurontin] 600 mg PO TID 04/25/16 [History] Irbesartan [Avapro] 150 mg PO DAILY 04/25/16 [History] Lithonia-3 Fatty Acids [Lithonia-3] 1,000 mg PO DAILY 04/25/16 [History] HYDROcodone/APAP 5-325MG [Union 5-325] 1 tab PO DIRECTED PRN 03/06/25 [History] Latanoprost [Latanoprost 0.005%] 1 drop BOTH EYES HS 03/06/25 [History] Unk Vitamin C 1 tab PO DAILY 03/06/25 [History] Unk Vitamin D 1 tab PO DAILY 03/06/25 [History] Baclofen 10 mg PO TID PRN #60 tab 03/10/25 [Rx] HYDROcodone/APAP 5-325MG [Union 5] 1 each PO Q6HR PRN #28 tab 03/10/25 [Rx] Sennosides-Docusate Sodium [Senokot-S] 1 tab PO BID PRN #60 tablet 03/10/25 [Rx] Follow up Appointment(s)/Referral(s): Patrice Hamtpon, KATIA [PHYSICIAN L[employer] M[employer]INE OPERATOR] - 2 Weeks (Patient may follow-up with Patrice Hampton PA-C or Dr. Sunday Addison at [facility] in 2-3 weeks following discharge. ) Kiran Coreas, [NON-STAFF] - As Needed Activity/Diet/Wound Care/Special Instructions: 1. Patient may shower with Optifoam dressing intact. 2. Patient may remove Optifoam dressing in 3 days and shower without a dressing at that time. 3. Patient should refrain from driving until at least after their first follow- up appointment in the office. 4. Patient should avoid excessive bending, twisting, lifting; avoid overhead lifting; no lifting greater than 10 pounds 5. Take medications as prescribed 6. Patient should avoid anti-inflammatory medications over the next 6 weeks postoperatively 7. Do not soak in tub Discharge Disposition: TRANSFER TO SNF/ECF
--- NOTE | 2025-03-11 16:05 | P.PN ---
Progress Note - Text Progress Note Date: 03/11/25 - Chief Complaint Back surgery - History of Present Illness Pleasant 79-year-old patient who follows with Dr. Purnima Parrish. Chronic medical conditions include DVT in the remote past, GERD, hypertension, hyperlipidemia, prostate cancer with surgical removal, restless leg syndrome, hiatal hernia, IBS, sciatica kidney stones. Patient been having increasing lower back pain. Pain does go down to the left hip and left leg. With numbness and tingling. Patient is undergone lumbar surgery. By Dr. Addison. Possibly has some pain sitting up in bed. No nausea vomiting March 09: Sitting up in bed. Daughter at the bedside. Eating fair. Johnson was removed. Has not made urine when I saw the patient earlier today. Seen by physical therapy. Was a moderate assist 3 feet to the chair. With a rolling walker. Looking to go to rehab. March 10: Eating well. Possible discharge to ECF tomorrow. A bit lethargic likely from pain medications. Will DC Dilaudid March 11: Up in a chair. Doing much better. Eating between 50 to 75%. Will be getting discharged to rehab today. Questions answered Active Medications Hydrocodone Bitart/Acetaminophen (Hydrocodone/Apap 5-325mg 1 Each Tab) 1 each PO Q4HR PRN PRN Reason: Pain 1-3 Stop: 04/07/25 13:04 Last Admin: 03/11/25 06:51 Dose: 1 each Aspirin (Aspirin 81 Mg) 81 mg PO DAILY [facility] Stop: 04/08/25 08:59 Last Admin: 03/11/25 08:18 Dose: 81 mg Atorvastatin Calcium (Atorvastatin 80 Mg Tab) 80 mg PO DAILY [facility] Stop: 04/08/25 08:59 Last Admin: 03/11/25 08:18 Dose: 80 mg Benzocaine/Menthol (Benzocaine/Menthol Lozeng 1 Each Lozenge) 1 each MUCOUS MEM Q4HR PRN PRN Reason: Sore Throat Stop: 04/07/25 13:04 Cyclobenzaprine HCl (Cyclobenzaprine 10 Mg Tab) 10 mg PO TID PRN PRN Reason: Muscle Spasm Stop: 04/07/25 13:04 Last Admin: 03/10/25 23:33 Dose: 10 mg Gabapentin (Gabapentin 300 Mg Cap) 600 mg PO TID [facility] Stop: 04/07/25 15:59 Last Admin: 03/11/25 08:18 Dose: 600 mg Lactated Ringer's (Lactated Ringers) 1,000 mls @ 20 mls/hr IV .Q24H [facility] Stop: 04/07/25 06:12 Last Admin: 03/11/25 04:59 Dose: Not Given Sodium Chloride (Saline 0.9%) 1,000 mls @ 75 mls/hr IV .[id number] [facility] Stop: 04/07/25 13:14 Last Admin: 03/10/25 18:27 Dose: Not Given Latanoprost (Latanoprost 0.005% Ophth Drops 2.5 Ml Btl) 1 drops BOTH EYES HS [facility] Stop: 04/07/25 20:59 Last Admin: 03/10/25 21:36 Dose: 1 drops Losartan Potassium (Losartan 50 Mg Tab) 50 mg PO DAILY [facility] Stop: 04/08/25 08:59 Last Admin: 03/11/25 08:18 Dose: 50 mg Magnesium Hydroxide (Magnesium Hydroxide 2,400 Mg/30 Ml Cup) 2,400 mg PO DAILY PRN PRN Reason: Constipation Stop: 04/07/25 13:04 Last Admin: 03/11/25 08:18 Dose: 2,400 mg Ondansetron HCl (Ondansetron 4 Mg/2 Ml Vial) 4 mg IVP Q8HR PRN PRN Reason: Nausea And Vomiting Stop: 04/07/25 13:04 Pantoprazole Sodium (Pantoprazole 40 Mg Tablet) 40 mg PO DAILY [facility] Stop: 04/08/25 08:59 Last Admin: 03/11/25 08:18 Dose: 40 mg Senna/Docusate Sodium (Sennosides-Docusate Sodium 1 Each Tab) 1 each PO DAILY [facility] Stop: 04/08/25 08:59 Last Admin: 03/11/25 08:18 Dose: 1 each Senna/Docusate Sodium (Sennosides-Docusate Sodium 1 Each Tab) 2 each PO DAILY PRN PRN Reason: Constipation Stop: 04/07/25 13:04 Last Admin: 03/10/25 13:36 Dose: 2 each Social history: Lives alone. Smoked for about 40 years stopped in 1989. Alcohol occasionally. Physical examination: VITAL SIGNS: 9 8.2, 110, 20, 129 x 92, 98% room air GENERAL: BMI 29.5 up in recliner awake EYES: Pupils equal. Conjunctiva jerome l. HEENT: External appearance of nose and ears normal, oral cavity grossly normal. NECK: JVD not raised; masses not palpable. HEART: First and second heart sounds are normal; no edema. LUNGS: Respiratory rate normal; clear to auscultation. ABDOMEN: Soft, nontender, liver spleen not palpable, no masses palpable. PSYCH: Answering questions appropriately MUSCULOSKELETAL:No Clubbing/cyanosis;muscles-grossly intact. Dressing over incision site NEUROLOGICAL: Cranial nerves grossly intact; no facial asymmetry, power and sensation grossly intact. INVESTIGATIONS, reviewed in the clinical context: March 09: White count 10.6 hemoglobin 13.5 platelets 154 potassium 4.4 creatinine 1.0 February 27, 2025: White count 8.7 hemoglobin 14.1 platelets 164 sodium 136 potassium 4.4 creatinine 1.0 Assessment plan: - Severe spinal stenosis L2-L3, L3-L4, L4-L5, spondylolisthesis L4-L5, history of prior laminectomy decompression L3-L4, L4-L5, DJD facet arthrosis, lower extremity radiculopathy with weakness especially on the left side low back pain. Patient underwent surgical intervention including laminectomy decompression discectomy interbody graft etc. Estimated blood loss approximately 600 cc with 200 get back to [facility] Pain control - Essential hypertension Avapro - Restless leg syndrome Neurontin - Acute gait dysfunction following surgery. PT OT on the case. - Follow H&H. EBL was 600 with 200 and [facility] in the morning - Hyperlipidemia Lipitor - GERD Omeprazole - Irritable bowel syndrome - Full code Getting discharged to rehab. Should have a CBC BMP in [address] Addison Past Medical History Past Medical History: Coronary Artery Disease (CAD), Cancer, CVA/TIA, Deep Vein Thrombosis (DVT), GERD/Reflux, Hyperlipidemia, Hypertension, Prostate Disorder Additional Past Medical History / Comment(s): hx cluster headaches, restless leg syndrome rt leg, hx ulcer and hiatal hernia, IBS, prostate cancer, hx anemia, arthritis,sciatica/bulging discs(had sx), tia,kidney stones. pt states he does not remember having a DVT or TIA History of Any Multi-Drug Resistant Organisms: None Reported Past Surgical History: Back Surgery, Hernia Repair, Prostate Surgery Additional Past Surgical History / Comment(s): nasal surgery, lap prostatectomy d/t cancer, sully inguinal hernia, rt cataract, , neck fusion 2003,back sx december 2015. hiatal hernia, rt rotator cuff repair Past Anesthesia/Blood Transfusion Reactions: No Reported Reaction Additional Past Anesthesia/Blood Transfusion Reaction / Comm: "long time to wake up from aa" Past Psychological History: No Psychological Hx Reported Smoking Status: Former smoker Past Alcohol Use History: Occasional Additional Past Alcohol Use History / Comment(s): started [id number] quit [id number] Past Drug Use History: None Reported
== END 2025-03-11 13:00 | DRG 428 ==
LOC: OR 05:46 → 4SSUR 05:47
PROVIDERS: ADMIT Orthopaedic Surgery Orthopaedic Surgery of the Spine; ATTEND Orthopaedic Surgery Orthopaedic Surgery of the Spine
PROC: 0SG1071 Fusion of 2 or more Lumbar Vertebral Joints with Autologous Tissue Substitute, Posterior Approach, Posterior Column, Open Approach (ICD-10-PCS; 2025-03-08)
PROC: 0ST20ZZ Resection of Lumbar Vertebral Disc, Open Approach (ICD-10-PCS; 2025-03-08)
PROC: 01NB0ZZ Release Lumbar Nerve, Open Approach (ICD-10-PCS; 2025-03-08)
PROC: 8E0WXBG Computer Assisted Procedure of Trunk Region, With Computerized Tomography (ICD-10-PCS; 2025-03-08)
PROC: 0SG10AJ Fusion of 2 or more Lumbar Vertebral Joints with Interbody Fusion Device, Posterior Approach, Anterior Column, Open Approach (ICD-10-PCS; principal; 2025-03-08 07:30)
DX: M43.16 Spondylolisthesis, lumbar region (principal); E78.5 Hyperlipidemia, unspecified; G25.81 Restless legs syndrome; I10 Essential (primary) hypertension; M47.26 Other spondylosis with radiculopathy, lumbar region; M48.062 Spinal stenosis, lumbar region with neurogenic claudication; M48.061 Spinal stenosis, lumbar region without neurogenic claudication; M51.16 Intervertebral disc disorders with radiculopathy, lumbar region; K58.9 Irritable bowel syndrome, unspecified; I25.10 Atherosclerotic heart disease of native coronary artery without angina pectoris; R33.9 Retention of urine, unspecified; Z86.718 Personal history of other venous thrombosis and embolism; Z79.82 Long term (current) use of aspirin; Z79.899 Other long term (current) drug therapy; Z87.891 Personal history of nicotine dependence; Z85.46 Personal history of malignant neoplasm of prostate; Z86.73 Personal history of transient ischemic attack (TIA), and cerebral infarction without residual deficits; Z90.79 Acquired absence of other genital organ(s)
CPT/HCPCS: 72100; 80048; 85025; 86891